=== PATIENT | female | born 1995 | race Caucasian/White ===

== ENCOUNTER 2019-09-16 14:02 | Outpatient (CLI) | payer BC ==
[~2019-09-16] VITALS: Ht 170.2 cm; Wt 61.2 kg
[2019-09-16] MEDS ORDERED: albuterol 2.5 MG/3 ML nebule NEB ONE (14:45)
== END 2019-09-16 23:59 | disposition home or self-care (01) ==
LOC: RT 14:02
PROVIDERS: ATTEND Family Medicine
DX: R06.02 Shortness of breath (principal)
CPT/HCPCS: 94010; 94727; 94729